=== PATIENT | female | born 1955 | race Caucasian/White ===

== ENCOUNTER 2023-09-05 07:22 | Day surgery (SDC) | payer MEDICARE ==
[~2023-09-05] VITALS: Ht 157.5 cm; Wt 86.0 kg
[~2023-09-05 07:22] MED LIST: CLONAZEPAM0.5 MG PO; LEVOTHYROXINE100 MC2 PO; PAXIL20 MG PO; VITAMIN D350 MCG PO
[2023-09-05 07:53] VITALS: BP 127/79
[2023-09-05] MEDS ORDERED: IMFINZI120 MG/2.4 IV (08:01)
[2023-09-05] MEDS ORDERED: OXYCODON-ACETA1 EAC2 PO (10:39)
[2023-09-05] MEDS ORDERED: IBUPROFEN600 MG PO (10:39)
[2023-09-05] MEDS ORDERED: ACETAMINOPHEN500 MG PO (10:40)
[2023-09-05 11:11] VITALS: BP 142/71
[2023-09-05 12:14] VITALS: BP 118/61
[2023-09-05 13:20] VITALS: BP 124/74
--- NOTE | 2023-09-05 19:07 | OR ---
[facility] [address], [place] [address] Signed DATE OF OPERATION: 09/05/2023 SURGEON: Edward Fernandez MD PREOPERATIVE DIAGNOSES: 1. History of advanced right lung cancer status post chemoradiation therapy (Dr. Saeed Elizabeth, Dr. Jeffrey Ambriz). 2. Cervical adenopathy with ashley jugular enlarged lymph node, fine-needle aspiration, "Suspicious.". POSTOPERATIVE DIAGNOSES: 1. History of advanced right lung cancer status post chemoradiation therapy (Dr. Saeed Elizabeth, Dr. Jeffrey Ambriz). 2. Cervical adenopathy with ashley jugular enlarged lymph node, fine-needle aspiration, "Suspicious.". PROCEDURE: Open biopsy of right internal jugular lymph node. ANESTHESIA: General endotracheal and local 5 mL of 0.25% Marcaine with epinephrine. ANESTHESIOLOGIST: Ancelmo Venegas CRNA. INDICATION: This is a 68-year-old white woman from [place], [place] and has been under treatment by Dr. Jeffrey Ambriz and Dr. Saeed Elizabeth for a right upper lobe lung cancer, considered unresectable on the basis of mediastinal adenopathy. She had complete resolution of the tumor in the right upper lobe. Radiation therapy was completed in October of 2022, and she was treated with concurrent carboplatin. The patient started immunotherapy adjuvantly as well. She had resolution of her chest mass based on CT scan of June 2023 (July 10, 2023), but a new right upper 4 cm apparent mediastinal mass considered suspicious was noted and a PET scan was performed. This showed enlarged metabolically active bilateral neck lymph nodes. She was referred by Dr. Ambriz for ultrasound fine-needle aspiration biopsy of the lymph Electronically Signed By: EDWARD FERNANDEZ MD 09/05/23 1907 PATIENT NAME: DILSHAD JIMÉNEZ OPERATIVE REPORT DATE OF : 55 REPORT #: [id number] PHYSICIAN: EDWARD FERNANDEZ MD PCP: PAULY ELIZABETH MD REPORT IS CONFIDENTIAL AND NOT TO BE RELEASED WITHOUT AUTHORIZATION [facility] [address], [place] [address] Signed node, which would guide further palliative intervention. This was performed by me by ultrasound technique in the past two weeks. It showed cells that were "suspicious." On the basis of that finding and need for further characterization of the tumor, an open lymph node excision is recommended. Palpable within the base of the neck beneath the sternocleidomastoid muscle, just cephalad to the bifurcation of the heads of the sternocleidomastoid muscle is the suspicious lymph node. The patient understands the risk of bleeding, infection, nerve injury, and other unforeseen complications related to lymph node biopsy. Understanding that she wished to proceed. FINDINGS: An ultrasound was performed immediately prior to operation to ascertain the location of the lymph node; clearly an enlarged lymph node lateral to the right internal jugular vein was noted. Excision consisted of nearly all of the lymph node or at least most of it being excised, though complete unmorcellated lymph node could not be excised given the depth of penetration and position. Right internal jugular vein was from it, though it was somewhat densely adherent initially. Good specimens were obtained for both fresh and permanent pathology. Clips were used on the edges of the lymph node to demarcate the area of intervention and to secure hemostasis. There were no complications. DESCRIPTION OF PROCEDURE: The patient was brought to the operating room, given a general endotracheal anesthetic. Preoperative antibiotic Ancef was given. Sequential compression device stockings were used. The head was turned to the left. Evaluation of the right neck was undertaken with a SonoSite ultrasound device simply to ascertain the site of the adenopathy. It appeared to be lateral to the right internal jugular vein close to the base of the neck. The neck was then prepared with chlorhexidine solution and draped sterilely. A transverse incision was made in the natural skin crease approximately 2-3 fingerbreadths above the clavicle in the area of thickened lateral neck. Dissection was carried through the subcutaneous tissue and platysmal layer with cautery. The sternocleidomastoid muscle was along its fibers revealing the underlying offending lymph node area. Meticulous care was taken to separate the tissue mostly with blunt dissection ultimately identifying the internal jugular vein. The lymph tissue lateral to it was meticulously dissected free with a fibrous covering with blunt dissection mostly. Fine dense areolar tissue was divided sharply or with electrocautery in minimal amounts freeing the medial aspect of the lymph node from the jugular vein. Superior and inferior dissection was similarly undertaken. Small clips were used for small blood vessels overlying the area. Ultimately, the inferior and most of the superior origin of the lymph node could be identified. It was approximately 2-3 Electronically Signed By: EDWARD FERNANDEZ MD 09/05/23 5671 PATIENT NAME: DILSHAD JIMÉNEZ OPERATIVE REPORT DATE OF : 55 REPORT #: [id number] PHYSICIAN: EDWARD FERNANDEZ MD PCP: PAULY ELIZABETH MD REPORT IS CONFIDENTIAL AND NOT TO BE RELEASED WITHOUT AUTHORIZATION [address] [address] Signed cm in length. Ultimately, excision of lymph tissue leaving the posterior capsule in place was undertaken providing a generous specimen of tissue for both permanent and fresh specimens. Hemostasis was assured with electrocautery and a few small clips raúl the area of lymph node intervention. The inferior border of the dissection was the posterior belly of the digastric muscle it appeared. Pauline was applied to the raw posterior capsule of the lymph node for additional security. The sternocleidomastoid muscle was reapproximated with interrupted 2-0 Vicryl as was the platysmal layer after irrigation was complete. The skin was closed with running subcuticular 3-0 Vicryl. Steri-Strips were applied as was an Acticoat dressing. The patient was ultimately extubated and transferred to the recovery room in good condition and suffered no complication. Sponge, needle, and instrument counts reported as correct x3. MD NIVIA Mera/PEYTONL /[id number] cc: Jeffrey Ambriz MD, PH.D. S MD [facility] PA Copies: JEFFREY AMBRIZ S MAYNARD MD ~ Electronically Signed By: EDWARD FERNANDEZ MD 09/05/23 1907 PATIENT NAME: DILSHAD JIMÉNEZ OPERATIVE REPORT DATE OF : 55 REPORT #: [id number] PHYSICIAN: EDWARD FERNANDEZ MD PCP: PAULY ELIZABETH MD REPORT IS CONFIDENTIAL AND NOT TO BE RELEASED WITHOUT AUTHORIZATION
--- NOTE | 2023-09-11 11:30 | PATH ---
[facility] [address] [place] [address] Signed SPECIMEN(S): A RIGHT JUGULAR LYMPH NODE SPECIMEN(S): B RIGHT JUGULAR LYMPH NODE IN RPMI SPECIMEN SOURCE: A. RIGHT JUGULAR LYMPH NODE B. RIGHT JUGULAR LYMPH NODE IN RPMI CLINICAL HISTORY: Right neck mass, possible recurrent malignancy. FINAL PATHOLOGIC DIAGNOSIS: Lymph node, right jugular, excision: - Metastatic poorly differentiated carcinoma, favor squamous cell carcinoma, see comment COMMENT: By immunohistochemistry, the malignant cells are positive for CK7 and p40/CK5/6 (multiplex stain), and negative for CK20 and TTF-1/Napsin (multiplex stain). The clinical history of poorly differentiated carcinoma of the lung is noted, and relevant pathology reports are reviewed in the electronic medical record, though slides are not available for review ([facility] accession number [id number], 06/25/2022). The immunophenotype in the current case matches that reported on the previous case, and the findings are favored to represent metastasis, however other primary sites cannot be excluded histologically. Correlation with all clinical and radiographic information is needed. As part of [facility] Quality Improvement Program, this case was reviewed by another member of our pathology staff. BRP The very small number of cells evaluated makes this study of limited diagnostic value, however the findings raise the level of suspicion for a B-cell lymphoma. Histologic correlation is required to make any definitive diagnosis. This case was evaluated, dictated, and edited by Eduard Veras M.D., board-certified hematopathologist. FLOW CYTOMETRY ANALYSIS: FLOW DIFFERENTIAL (% Total CD45 vs. SSC gating): Lymphoid 0.5%; Debris 99%. Cell Count: 4.8 x 10*2/uL. Total Viability: 82% POPULATION ANALYSIS: PATIENT NAME: DILSHAD JIMÉNEZ PATHOLOGY DATE OF : 55 REPORT #: [id number] PHYSICIAN: [facility] PCP: PAULY ELIZABETH MD REPORT IS CONFIDENTIAL AND NOT TO BE RELEASED WITHOUT AUTHORIZATION [facility] [address] [place], [place] [address] Signed LYMPHOID CELLS: The lymphocyte gate comprises 0.5% of total events and includes 58% T-cells with a CD4:CD8 ratio of 13.7:1 and normal may T-cell antigen expression. 20% of lymphocytes are kappa-biased B-cells with a kappa:lambda ratio of 4.6:1 without co-expression of CD5 or CD10. A pathology concern for hairy cells is noted. For this reason, select additional antibodies are run to further characterize the Bcells. Expression of CD22 DIM is noted while CD11c, CD25. CD103 and CD123 are negative. The remainders are NK-cells. PLASMA/PLASMACYTOID CELLS: A significant plasma cell population is not detected in the neg-dimCD45/CD38 screening gate. Initial Antibodies Used: KAPPA, LAMBDA, CD20, CD10, CD19, CD23, CD38, CD16, CD56, CD8, CD5, CD2, CD4, CD7, CD3, CD45, 7AAD. Additional Antibodies (necessary for further classification of the B-lymphocytes): CD103, CD11c, CD25, CD22, CD123. Total Antibodies Used: 22 TCS/JNB FLOW CYTOMETRY: Flow cytometry analysis, right jugular lymph node: - Limited by small numbers of lymphocytes to evaluate. - Small CD5-/CD10- kappa predominant B-cell population identified (K:L ratio of 4.6:1). - T-cell population with increased CD4:CD8 ratio with normal may T-cell antigen expression. - See Comment. MICROSCOPIC EXAMINATION: Histologic sections of all submitted blocks (or IHC as applicable) are digitally scanned and examined. These findings, together with the gross examination, support the pathologic diagnosis. GROSS DESCRIPTION: A. The specimen, labeled and designated "Roshan, right jugular lymph node," is received in formalin and consists of multiple fragments of owen-pink soft tissue (2.5 x 1.5 x 1.0 cm in aggregate). The specimen is submitted entirely in cassette (A1). B. RPMI was received and sent to [facility] to be run for flow cytometry per Dr. Murray. VB (under the direct supervision of a pathologist) The Gross Description was prepared using a voice recognition system. The report was reviewed for accuracy; however, sound-alike word errors, addition and/or PATIENT NAME: DILSHAD JIMÉNEZ PATHOLOGY DATE OF : 55 REPORT #: [id number] PHYSICIAN: [facility] PCP: PAULY ELIZABETH MD REPORT IS CONFIDENTIAL AND NOT TO BE RELEASED WITHOUT AUTHORIZATION [facility] [address], [place] [address] Signed deletions may occur. If there is any question about this report, please contact Client Services. ADDITIONAL NOTES: This test was developed and its performance characteristics determined by [facility]. It has not been cleared or approved by the US Food and Drug Administration. The FDA does not require this test to go through premarket FDA review. This test is used for clinical purposes. It should not be regarded as investigational or for research. This laboratory is certified under the Clinical Laboratory Improvement Amendments (CLIA) as qualified to perform high complexity clinical laboratory testing. Immunohistochemical and/or in situ hybridization studies if performed in this case included appropriate positive controls that reacted as expected. This test was developed and its performance characteristics determined by [facility]. It has not been cleared or approved by the U.S. Food and Drug Administration. The FDA has determined that such clearance or approval is not necessary. This test is used for clinical purposes. It should not be regarded as investigational or for research. [facility] is certified under the Clinical Laboratory Improvement Amendments of 1987 (CLIA) as qualified to perform high complexity clinical laboratory testing. In this case, certain antibodies were performed by both immunohistochemistry and flow cytometry analysis because flow cytometry analysis did not fully explain all the light microscopic findings. Immunohistochemistry aided in the analysis. Both methods are deemed medically necessary in this case. PERFORMING LABORATORY: Technical component was performed by [facility], [address] [place] [id number] (CLIA# [id number]). Professional interpretation was performed by [facility] [address] [place] [id number] The technical preparation was performed by [facility], [address] [place], [place] [address] [address] (CLIA#: [id number]). Professional interpretation was performed by [facility], [address] [place] [address], [place] [id number] (CLIA#: [id number]). IMAGES: A: [id number] PATIENT NAME: DILSHAD JIMÉNEZ PATHOLOGY DATE OF : 55 REPORT #: [id number] PHYSICIAN: [facility] PCP: PAULY ELIZABETH MD REPORT IS CONFIDENTIAL AND NOT TO BE RELEASED WITHOUT AUTHORIZATION [address] [address] Signed A: [id number] FINAL DIAGNOSIS PERFORMED BY: Eduard Veras MD, Pathologist Sep 11 2023 6:56AM Diagnostician: Castillo Cosby MD Pathologist Electronically Signed 09/11/2023 Copies: ~ PATIENT NAME: DILSHAD JIMÉNEZ PATHOLOGY DATE OF : 55 REPORT #: [id number] PHYSICIAN: [facility] PCP: PAULY ELIZABETH MD REPORT IS CONFIDENTIAL AND NOT TO BE RELEASED WITHOUT AUTHORIZATION
== END 2023-09-05 13:25 | disposition home or self-care (01) ==
LOC: DS 07:22
PROVIDERS: ATTEND Surgery
PROC: 0JB40ZX Excision of Right Neck Subcutaneous Tissue and Fascia, Open Approach, Diagnostic (ICD-10-PCS; principal; 2023-09-05 09:20)
DX: C76.0 Malignant neoplasm of head, face and neck (principal); E66.9 Obesity, unspecified; E03.9 Hypothyroidism, unspecified; Z68.34 Body mass index [BMI] 34.0-34.9, adult; Z85.118 Personal history of other malignant neoplasm of bronchus and lung
CPT/HCPCS: 00320; 88184; 88185; 88305; 88341; 88342; 88344; J0690; J1100; J1885; J2001; J2250; J2405; J2704; J3010; J7121